=== PATIENT | female | born 1985 | race Caucasian/White ===

== ENCOUNTER 2017-02-28 12:48 | Emergency (ER) | payer BC ==
[~2017-02-28] VITALS: Ht 180.3 cm; Wt 139.0 kg
[~2017-02-28 12:48] MED LIST: ACIPHEX20 MG PO; ALLEGRA 180MG180 MG PO; ALLEGRA30 MG PO; CARAFATE 1GM1 G PO; CORTEF 10MG TAB10 MG PO; CORTEF 20MG TAB20 MG PO; FLORINEF ACETA0.1 MG PO; GLUCOSAMINE & C1 CA1 PO; LEVAQUIN 250MG250 MG PO; LIPITOR20 MG PO; NEXIUM 40MG40 MG PO; NORCO 325 MG-51 TAB PO; NORVASC 5MG5 MG/TAB PO; PERCOCET 325 MG1 TA2 PO; PREVACID 30MG30 M1 PO; PRILOSEC 20MG20 MG PO; PRINIVIL10 MG PO; SENNA1 TAB PO; TOPROL XL 25MG25 MG PO; TOPROL XL25 MG PO; ZOFRAN 4MG T4 MG/TAB PO
[2017-02-28 12:52] VITALS: TEMP 97.8
[2017-02-28 13:52] LABS: PH 6 (5-8); SQUAMOUS EPITHELIAL 0-2 /hpf; URINE APPEARANCE Clear; URINE BACTERIA None Seen /hpf; URINE BILIRUBIN Negative (NEGATIVE); URINE BLOOD Negative (NEGATIVE); URINE COLOR Yellow; URINE GLUCOSE Negative (NEGATIVE); URINE KETONE Negative (NEGATIVE); URINE RBC 0-2 /hpf; URINE UROBILINOGEN Negative (NEGATIVE); URINE WBC 0-2 /hpf
[2017-02-28 13:55] LABS: BASO % 0.4 % (0.0-2.0); EOS % 0.3 % (0-4.0); GRAN # 7.1 (1.4-6.5); GRAN % 71.4 % (42.2-75.2); HEMATOCRIT 38.2 % (37.0-47.0); HEMOGLOBIN 12.7 g/dl (12.5-16.0); LYMPH # 2.1 (1.2-3.4); LYMPH % 21.4 % (20.0-51.0); MEAN CELL VOLUME 86 fl (80.0-100.0); MEAN CORPUSCULAR HEMOGLOBIN 28 pg (27.0-31.0); MEAN CORPUSCULAR HGB CONC 33 g/dl (33.0-37.0); MEAN PLATELET VOLUME 10.7 fl (7.4-10.4); MONO # 0.6 (0.1-0.6); MONO % 6.2 % (1.7-9.3); PLATELET COUNT 341 K/mm3 (130-400); RED BLOOD COUNT 4.47 M/mm3 (4.10-5.30); REDCELL DISTRIBUTION WIDTH-CV 13.6 % (11.5-14.5); WHITE BLOOD COUNT 9.9 K/mm3 (4.8-10.8)
[2017-02-28 14:21] LABS: ALANINE AMINOTRANSFERASE 22 U/L (9-52); ALBUMIN 4.1 gm/dL (3.5-5.0); ALKALINE PHOSPHATASE 67 U/L (50-136); ANION GAP 11 mmol/L (7-16); BILIRUBIN,TOTAL 0.4 mg/dL (0.0-1.0); BLOOD UREA NITROGEN 9 mg/dL (7-17); CALCIUM 9.1 mg/dL (8.4-10.2); CARBON DIOXIDE 22 mmol/L (22-30); CHLORIDE 106 mmol/L (98-107); CREATININE, serum 0.68 mg/dL (0.52-1.25); GLUCOSE 142 mg/dL (74-106); LIPASE 67 U/L (23-300); POTASSIUM 3.7 mmol/L (3.4-5.0); SODIUM 139 mmol/L (137-145); TOTAL PROTEIN 7.6 gm/dL (6.4-8.2)
[2017-02-28 14:22] LABS: C-REACTIVE PROTEIN < 0.5 mg/dL (0.0-0.9)
[2017-02-28] MEDS ORDERED: PHENERGAN 25 TA25 MG PO (16:08)
[2017-02-28 16:20] VITALS: BP 113/67; PULSE 82
== END 2017-02-28 16:24 | disposition home or self-care (01) ==
LOC: COL.ER 12:48
PROVIDERS: Emergency Medicine
DX: R10.11 Right upper quadrant pain (principal); Z86.03 Personal history of neoplasm of uncertain behavior; Z32.02 Encounter for pregnancy test, result negative; Z90.5 Acquired absence of kidney
CPT/HCPCS: C9113; J1170; J1720; J2550; J7030

== ENCOUNTER → 2018-06-17 | Outpatient (CLI) | payer BC ==
[~2018-06-17] MED LIST changes: +PHENERGAN 25 TA25 MG PO
== END ==
LOC: COL.RAD 06-14 14:00
DX: K86.3 Pseudocyst of pancreas (principal); Z90.5 Acquired absence of kidney; Z90.89 Acquired absence of other organs
CPT/HCPCS: A9585

== ENCOUNTER → 2018-09-10 | Outpatient (CLI) | payer BC | LOC: COL.RAD 14:30 | DX: A88.1 Epidemic vertigo (principal); G93.5 Compression of brain | CPT/HCPCS: A9585 ==

== ENCOUNTER 2019-04-08 15:00 | Emergency (ER) | payer BC ==
[~2019-04-08] VITALS: Ht 180.3 cm; Wt 135.9 kg
[~2019-04-08 15:00] MED LIST changes: +CORTEF5 MG PO
[2019-04-08 15:05] VITALS: TEMP 96.1
[2019-04-08 15:35] LABS: BASO % 0.3 % (0.0-2.0); EOS # 0.1 (0.0-0.7); EOS % 1.1 % (0-4.0); GRAN # 3.6 (1.4-6.5); GRAN % 56.5 % (42.2-75.2); HEMATOCRIT 42.7 % (37.0-47.0); LYMPH # 1.8 (1.2-3.4); LYMPH % 28.7 % (20.0-51.0); MEAN CELL VOLUME 87 fl (80.0-100.0); MEAN CORPUSCULAR HEMOGLOBIN 29 pg (27.0-31.0); MEAN CORPUSCULAR HGB CONC 33 g/dl (33.0-37.0); MEAN PLATELET VOLUME 10.5 fl (7.4-10.4); MONO # 0.8 (0.1-0.6); MONO % 13.2 % (1.7-9.3); PLATELET COUNT 332 K/mm3 (130-400); RED BLOOD COUNT 4.89 M/mm3 (4.10-5.30); REDCELL DISTRIBUTION WIDTH-CV 12.8 % (11.5-14.5)
[2019-04-08 15:41] LABS: ALBUMIN 4.1 gm/dL (3.5-5.0); BILIRUBIN,TOTAL 0.2 mg/dL (0.0-1.0); CALCIUM 10.2 mg/dL (8.4-10.2); CREATININE, serum 1.02 (0.52-1.25); POTASSIUM 4.5 mmol/L (3.4-5.0); TOTAL PROTEIN 7.8 gm/dL (6.4-8.2)
[2019-04-08] MEDS ORDERED: NORVASC 10MG10 MG PO (15:51)
[2019-04-08] MEDS ORDERED: THERA-D 20002000 IU PO (15:52)
[2019-04-08] MEDS ORDERED: FLONASE NASAL S16 GM NS (15:56)
[2019-04-08] MEDS ORDERED: CORTEF5 MG PO ×3 (16:01→16:04)
[2019-04-08 16:11] LABS: TSH w REFLEX 0.015 uIU/mL (0.465-4.680)
[2019-04-08 16:59] LABS: COLLECTION METHOD CLEAN CATCH
[2019-04-08] MEDS ORDERED: PRINIVIL20 MG PO (17:07)
[2019-04-08] MEDS ORDERED: ZOFRAN 4MG T4 MG/TAB PO (17:07)
[2019-04-08] MEDS ORDERED: BACTRIM DS 8001 TAB PO (17:08)
[2019-04-08] MEDS ORDERED: VITAMIN C500 MG PO (17:10)
[2019-04-08] MEDS ORDERED: SOLU-CORTE100 MG/VIA IJ (17:13)
[2019-04-08 17:14] LABS: PH 6 (5-8); SQUAMOUS EPITHELIAL 0-2 /hpf; URINE APPEARANCE Clear; URINE BACTERIA Rare /hpf; URINE BILIRUBIN Negative (NEGATIVE); URINE BLOOD Negative (NEGATIVE); URINE COLOR Yellow; URINE GLUCOSE Negative (NEGATIVE); URINE KETONE Negative (NEGATIVE); URINE LEUKOCYTE ESTERASE Negative (NEGATIVE); URINE NITRATE Negative (NEGATIVE); URINE PROTEIN(semi-quant) Negative (NEGATIVE); URINE RBC 0-2 /hpf; URINE UROBILINOGEN Negative (NEGATIVE)
[2019-04-08] MEDS ORDERED: TENORMIN 2525 MG/TAB PO (18:42)
[2019-04-08 19:13] VITALS: BP 121/77; PULSE 98
== END 2019-04-08 19:31 | disposition home or self-care (01) ==
LOC: COL.ER 15:00
PROVIDERS: Emergency Medicine
DX: E05.90 Thyrotoxicosis, unspecified without thyrotoxic crisis or storm (principal); R00.0 Tachycardia, unspecified; Z79.51 Long term (current) use of inhaled steroids
CPT/HCPCS: J1720; J7030

== ENCOUNTER 2021-02-10 21:29 | Emergency (ER) | payer BC ==
[~2021-02-10] VITALS: Ht 180.3 cm; Wt 135.9 kg
[~2021-02-10 21:29] MED LIST changes: +BACTRIM DS 8001 TAB PO; +FLONASE NASAL S16 GM NS; +NORVASC 10MG10 MG PO; +PRINIVIL20 MG PO; +SOLU-CORTE100 MG/VIA IJ; +TENORMIN 2525 MG/TAB PO; +THERA-D 20002000 IU PO; +VITAMIN C500 MG PO
[2021-02-10 21:38] VITALS: TEMP 97.9
[2021-02-10 21:55] LABS: COLLECTION METHOD CLEAN CATCH
[2021-02-10 22:04] LABS: PH 6 (5-8); SQUAMOUS EPITHELIAL 0-2 /hpf; URINE APPEARANCE Clear; URINE BACTERIA Rare /hpf; URINE BILIRUBIN Negative (NEGATIVE); URINE BLOOD 3+ (NEGATIVE); URINE COLOR Amber; URINE GLUCOSE Negative (NEGATIVE); URINE KETONE Negative (NEGATIVE); URINE LEUKOCYTE ESTERASE Negative (NEGATIVE); URINE NITRATE Positive (NEGATIVE); URINE PROTEIN(semi-quant) Negative (NEGATIVE); URINE UROBILINOGEN >=4.0 mg/dL (NEGATIVE)
[2021-02-10] MEDS ORDERED: MACROBID 1100 MG/CAP PO (22:28)
[2021-02-10 22:36] VITALS: BP 131/81; PULSE 89
== END 2021-02-10 22:36 | disposition home or self-care (01) ==
LOC: COL.ER 21:29
PROVIDERS: Emergency Medicine
DX: N39.0 Urinary tract infection, site not specified (principal); Z85.528 Personal history of other malignant neoplasm of kidney; Z90.5 Acquired absence of kidney

== ENCOUNTER → 2021-09-08 | Outpatient (CLI) | payer BC ==
[~2021-09-08] MED LIST changes: +MACROBID 1100 MG/CAP PO
== END ==
LOC: MC.RAD 12:46
DX: N63.20 Unspecified lump in the left breast, unspecified quadrant (principal); N64.9 Disorder of breast, unspecified

== ENCOUNTER → 2022-02-24 | Outpatient (CLI) | payer BC | LOC: COL.RAD 13:28 | DX: Q85.8 Other phakomatoses, not elsewhere classified (principal) | CPT/HCPCS: A9575 ==

== ENCOUNTER → 2022-03-16 | Outpatient (CLI) | payer BC | LOC: MC.RAD 03-13 14:00 | DX: N60.01 Solitary cyst of right breast (principal) ==

== ENCOUNTER 2023-04-15 17:54 | Emergency (ER) | payer BC ==
[~2023-04-15] VITALS: Ht 180.3 cm; Wt 131.8 kg
[~2023-04-15 17:54] MED LIST changes: +GLUCOPHAGE500 MG/TAB PO; +K-TAB20 PO; +LEXAPRO 10MG10 MG PO; +SOLU-CORTE100 MG/VIA; +[UNRECOGNIZED DRUG - OTHER] PO
[2023-04-15 19:11] VITALS: BP 103/69; PULSE 72; TEMP 98.2
== END 2023-04-15 19:11 | disposition home or self-care (01) ==
LOC: COL.ER 17:54
DX: L03.113 Cellulitis of right upper limb (principal)